=== PATIENT | male | born 1965 | race Caucasian/White ===

== ENCOUNTER 2019-02-19 07:56 | Day surgery (SDC) | payer OTHER ==
[~2019-02-19] VITALS: Ht 182.9 cm; Wt 84.9 kg
[2019-02-19] MEDS ORDERED: LAMOTRIGINE100 MG PO (08:22)
[2019-02-19] MEDS ORDERED: ATOR10 PO (08:22)
[2019-02-19] MEDS ORDERED: DOXE75C PO (08:22)
== END 2019-02-19 10:42 | disposition home or self-care (01) ==
LOC: ORSCSDS 07:56
PROVIDERS: Student in an Organized Health Care Education/Training Program
PROC: 0DB58ZX Excision of Esophagus, Via Natural or Artificial Opening Endoscopic, Diagnostic (ICD-10-PCS; principal; 2019-02-19 09:00)
PROC: 0DB78ZX Excision of Stomach, Pylorus, Via Natural or Artificial Opening Endoscopic, Diagnostic (ICD-10-PCS; principal; 2019-02-19 09:00)
PROC: 0DBM8ZX Excision of Descending Colon, Via Natural or Artificial Opening Endoscopic, Diagnostic (ICD-10-PCS; principal; 2019-02-19 09:00)
DX: R13.10 Dysphagia, unspecified (principal); K21.0 Gastro-esophageal reflux disease with esophagitis; Z12.11 Encounter for screening for malignant neoplasm of colon; Z80.0 Family history of malignant neoplasm of digestive organs; D12.4 Benign neoplasm of descending colon; K31.7 Polyp of stomach and duodenum; K44.9 Diaphragmatic hernia without obstruction or gangrene; K29.70 Gastritis, unspecified, without bleeding; K57.30 Diverticulosis of large intestine without perforation or abscess without bleeding; K64.8 Other hemorrhoids; K64.4 Residual hemorrhoidal skin tags; I10 Essential (primary) hypertension; Z79.899 Other long term (current) drug therapy
CPT/HCPCS: 88305; 88312; 88342; J2704; J7040; J7120

== ENCOUNTER 2019-06-13 10:33 | Day surgery (SDC) | payer OTHER ==
[~2019-06-13] VITALS: Ht 182.9 cm; Wt 86.5 kg
[~2019-06-13 10:33] MED LIST: ATOR10 PO; DOXE75C PO; LAMOTRIGINE100 MG PO
--- NOTE | 2019-06-13 14:09 | NUR ---
06/13/19 1409 DOROTHY WOLFE PATIENT IN STEP DOWN RECLINER. PATIENT REPORTS PAIN AT LEVEL OF 3 OUT OF 10 AND "TOLERABLE, LIKE A HEADACHE". ICE PACK PLACED TO ELBOW/ARM. SLING IN PLACE AND ARM ELEVATED ON PILLOW. PATIENT EDUCATED ON DISCHARGE INSTRUCTIONS. IV REMOVED. PATIENT ASSISTED IN DRESSING. VITALS SIGNS STABLE. AWAITING RIDE FROM [employer]-= FRIEND
== END 2019-06-13 15:05 | disposition home or self-care (01) ==
LOC: ORSCSDS 10:33
PROVIDERS: Orthopaedic Surgery
PROC: 0LM30ZZ Reattachment of Right Upper Arm Tendon, Open Approach (ICD-10-PCS; principal; 2019-06-13 11:45)
DX: S46.111A Strain of muscle, fascia and tendon of long head of biceps, right arm, initial encounter (principal); I10 Essential (primary) hypertension; K21.9 Gastro-esophageal reflux disease without esophagitis; Z79.899 Other long term (current) drug therapy; E78.5 Hyperlipidemia, unspecified
CPT/HCPCS: C1713; J0171; J0690; J1100; J1885; J2250; J2370; J2405; J2704; J2710; J3010; J7120

== ENCOUNTER 2019-10-10 09:41 | Day surgery (SDC) | payer OTHER ==
[~2019-10-10] VITALS: Ht 182.9 cm; Wt 87.7 kg
[~2019-10-10 09:41] MED LIST changes: +ESCI10 PO; +MELA3 PO; +Norco 10-325 T1 EACH PO
--- NOTE | 2019-10-10 10:22 | NUR ---
[facility] inTO Day Surgery. Surgical site prepped with 2% Chlorhexidine cloth wipe. History, Chart, Medications and Allergies reviewed before start of procedure. Lungs clear T/O to Auscultation. Patient confirms NPO status and agrees with scheduled surgery. N[place]KLACE, TABLET IN PT'S BACKPACK.
--- NOTE | 2019-10-10 14:22 | NUR ---
PT ARRIVED TO THE ROOM FROM PACU AT APPROXIMATELY 1400. PT IS DROWSY BUT ORIENTED. HE DENIES PAIN. PO FLUIDS PROVIDED. VSS. WILL CONTINUE TO MONITOR.
--- NOTE | 2019-10-10 17:04 | NUR ---
SHIFT SUMMARY PT HAD L VARINDER WITH DR. TOM TODAY. PT IS ALERT AND ORIENTED. HE HAD SPINAL ANESTHESIA, SENSATION HAS RETURNED AT THIS TIME; HOWEVER PT WAS UNABLE TO WORK WITH THERAPY BECAUSE HE WAS STILL EXPERIENCING NUMBNESS WHEN THERAPY CAME TO WORK WITH HIM. PT IS TOLERATING PO. VSS. WILL MONITOR UNTIL REPORT TO ONCOMING RN.
--- NOTE | 2019-10-10 19:23 | NUR ---
PT HAS BEEN ABLE TO VOID 250ML SINCE SURGERY. BLADDER SCAN SHOWED 850ML IN BLADDER. PT WAS EDUCATED THAT A DISTENDED BLADDER CAN BE DANGEROUS. PT DECLINED STRAIGH CATH AND SAID HE WOULD CONTINUE TO TRY TO VOID. MORGAN CHAIDEZ PROVIDED ORDER FOR LIDOCAINE JELLY FOR CATHETER START IF NEEDED.
--- NOTE | 2019-10-10 23:56 | NUR ---
PT DECLINING TO AMBULATE. PT EDUCATED ON THE IMPORTANCE OF EARLY MOBILIZATION, PT STATES "I JUST WANT TO GET SOME SLEEP" PT AGREED TO AMBULATE LATER IN AM.
[2019-10-11 04:20] LABS: BASOPHILS ABSOLUTE AUTO 0.01 K/mm3 (0.00-0.23); BASOPHILS PERCENT AUTO 0 % (0-2); EOSINOPHILS ABSOLUTE AUTO 0.01 K/mm3 (0.00-0.68); EOSINOPHILS PERCENT AUTO 0 % (0-6); Hematocrit 34.7 % (37.0-53.0); Hemoglobin 11.9 g/dL (13.5-17.5); IMMATURE GRAN ABSOLUTE AUTO 0.01 K/mm3 (0.00-0.10); IMMATURE GRAN PERCENT AUTO 0 % (0-1); LYMPHOCYTES ABSOLUTE AUTO 1.06 K/mm3 (0.84-5.20); LYMPHOCYTES PERCENT AUTO 15 % (21-46); MONOCYTES ABSOLUTE AUTO 0.78 K/mm3 (0.16-1.47); MONOCYTES PERCENT AUTO 11 % (4-13); Mean Corpuscular HGB 31.9 pg (26.0-34.0); Mean Corpuscular HGB Conc 34.3 g/dL (31.5-36.5); Mean Corpuscular Volume 93 fL (80-100); NEUTROPHILS ABSOLUTE AUTO 5.43 K/mm3 (1.96-9.15); NEUTROPHILS PERCENT AUTO 75 % (41-73); Platelet Count 172 K/mm3 (150-400); RDW Coefficient Variation 12.5 % (11.7-14.2); RDW Standard Deviation 42.6 fL (35.1-46.3); Red Blood Cell Count 3.73 M/mm3 (4.30-5.90)
[2019-10-11 04:36] LABS: Anion Gap 4 mmol/L (6-16); Blood Urea Nitrogen 18 mg/dL (8-24); Bun/Creatinine Ratio 21.5 (12.0-20.0); CO2, Blood 31 mmol/L (21-32); Calcium, Blood 8.3 mg/dL (8.5-10.1); Chloride, Blood 104 mmol/L (98-108); Creatinine, Blood 0.84 mg/dL (0.60-1.20); Glomerular Filtration Rate >60 (60-); Glucose, Blood 106 mg/dL (70-99); Magnesium, Blood 1.8 mg/dL (1.6-2.4); Sodium, Blood 139 mmol/L (136-145)
--- NOTE | 2019-10-11 06:30 | NUR ---
POD 1 S/P R VARINDER. PT VSS T/O NIGHT. DRESSING CDI. PAIN MGD W/2 OXYCODONE W/REP RELIEF. PT VOIDING URINE W/O DIFFICULTY. PT UP OOB THIS AM, CANDIS WELL. PT CANDIS REG PO, IV S/L PER ORDERS. PT USING CALL LIGHT FOR ASSISTANCE, WILL CONT TO MONITOR UNTIL REP GIVEN TO ONCOMING RN.
[2019-10-11] MEDS ORDERED: HYDR1TAB94 PO (10:40)
[2019-10-11] MEDS ORDERED: ASPI325 PO (10:42)
[2019-10-11] MEDS ORDERED: OXYC5 PO (10:45)
[2019-10-11] MEDS ORDERED: PROM12.5S PO (10:46)
--- NOTE | 2019-10-11 11:37 | NUR ---
Upon receiving an admit referral for spiritual care, I visit patient. Patient is just returning from PT work out and states that he is exhausted but asks if I could say a prayer for his recovery. I gladly provide prayer and a blessing. Patient verbalizes appreciation.
--- NOTE | 2019-10-11 13:38 | NUR ---
DISCHARGE PT PROVIDED WITH WRITTEN AND VERBAL DISCHARGE INSTRUCTIONS. HE REPORTED UNDERSTANDING INSTRUCTIONS. PT PROVIDED WITH DRESSINGS FOR HOME. PT REPORTED HE HAD SCRIPTS PROVIDED BY DR. TOM IN HIS BAG. PT PROVIDED WITH PO PAIN MEDICATION PRIOR TO DISCHARGE FOR PAIN MANAGEMENT. PT ESCORTED OUT IN W/C BY SAVANNAH HAM.
--- NOTE | 2019-10-11 14:09 | NUR ---
10/11/19 1409 Zari Sutherland VERIFICATIONS: EDIT CHART.
== END 2019-10-11 13:17 | disposition home or self-care (01) ==
LOC: ORSCMMR 09:41 → ORD 10:30 → SURS 14:00 → ORSCMMR 14:00 → SURS 10-11 13:03 → ORSCMMR 10-11 13:17
PROVIDERS: Orthopaedic Surgery
PROC: 0SRB0JA Replacement of Left Hip Joint with Synthetic Substitute, Uncemented, Open Approach (ICD-10-PCS; principal; 2019-10-10 10:30)
PROC: 8E0YXBZ Computer Assisted Procedure of Lower Extremity (ICD-10-PCS; principal; 2019-10-10 10:30)
DX: M16.12 Unilateral primary osteoarthritis, left hip (principal); I10 Essential (primary) hypertension; K21.9 Gastro-esophageal reflux disease without esophagitis; E78.5 Hyperlipidemia, unspecified; F31.9 Bipolar disorder, unspecified; Z79.899 Other long term (current) drug therapy
CPT/HCPCS: 36415; 72170; 80048; 83735; 85025; 88300; 97116; 97161; 97166; 97530; 97535; C1713; C1776; J0171; J0690; J0735; J1100; J1885; J2250; J2370; J2405; J2704; J2795; J3010; J3370; J7050; J7120